=== PATIENT | male | born 1955 | race Caucasian/White ===

== ENCOUNTER 2018-02-27 23:48 | Observation (INO) ==
--- NOTE | 2018-02-28 00:19 | ED ---
HPI General Chief Complaint: Arrhythmia / Palpitations Stated Complaint: Lft arm tingling x 30 min Time Seen by Provider: 02/27/18 23:55 Source: patient Mode of arrival: ambulatory Limitations: no limitations History of Present Illness HPI narrative: Patient is a 62-year-old male who presents to the emergency room for evaluation of chest pain with left arm tingling. 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 Reports that his chest pain is left sided and feels like a "pressure" to his chest. Reports that he has been feeling as if his heart was racing as well. Patient reports that his left arm feels tingly although his chest pain does not radiate to his left arm. Patient reports that right now, his heart does not feel like it is racing, reports that he just feels pressure to his chest. Patient reports that overall, he is very healthy, he does not take any medications at baseline, he is a non-smoker, he quit smoking tobacco 2 years ago. Reports that he did take an aspirin 325 mg earlier today as he had some pain. He does not take aspirin daily. Patient reports that he does follow-up at primary care often. Patient reports that he has never felt this way before MD complaint: Reports chest pain STEMI Alert: No Onset (ago): minute(s) (30 minutes prior to arrival to the ER) Duration: improved Onset: during rest Pain location: Reports left chest Severity: moderate Severity scale (1-10): 5 Quality: Reports aching Pain radiation: Reports LUE Relieving factors: nothing Related Data Home Medications Medication Instructions Recorded Confirmed aspirin 325 mg PO DAILY 02/28/18 02/28/18 esomeprazole magnesium [Nexium] 20 mg PO DAILY 02/28/18 02/28/18 Allergies Allergy/AdvReac Type Severity Reaction Status Date / Time No Known Allergies Allergy Verified 02/28/18 00:15 Review of Systems ROS: all other systems reviewed are negative PMFSH History History Provided By: Patient Medical History Medical History Hx of rheumatic fever (Acute) Surgical History Surgical History No history of previous surgery (Acute) Social History Social History (Reviewed 02/28/18 @ 00:16 by Celeste Rutledge Substance History: No History of Abuse Second Hand Smoke Exposure: Yes Smoking Status: Former smoker How Often Do You Have a Drink Containing Alcohol: 4 or more times a week Recent Travel in [facility] within the Last 8 Weeks: No Recent Out of Country Travel within the Last 8 Weeks: No Exam Narrative Exam Narrative: GENERAL: Mild distress SKIN: Focused skin assessment warm/dry. HEAD: Atraumatic. Normocephalic. EYES: Pupils equal and round. No scleral icterus. No injection or drainage. ENT: No nasal bleeding or discharge. Mucous membranes pink and moist. NECK: Trachea midline. No JVD. CARDIOVASCULAR: tachycardic. No murmur appreciated. RESPIRATORY: No accessory muscle use. Clear to auscultation. Breath sounds equal bilaterally. GASTROINTESTINAL: Abdomen soft, non-tender, nondistended. Hepatic and splenic margins not palpable. MUSCULOSKELETAL: No obvious deformities. No clubbing. No cyanosis. No edema. NEUROLOGICAL: Awake and alert. No obvious cranial nerve deficits. Motor grossly within normal limits. Normal speech. PSYCHIATRIC: Anxious mood and affect; insight and judgment normal. Course Initial Documented Vital Signs Temperature 97.8 F 02/28/18 00:15 Pulse Rate 102 H 02/28/18 00:15 Respiratory Rate 18 02/28/18 00:15 Blood Pressure 114/66 02/28/18 00:15 Pulse Oximetry 98 02/28/18 00:15 Last Documented Vital Signs Temperature 97.8 F 02/28/18 00:15 Pulse Rate 82 02/28/18 01:50 Respiratory Rate 18 02/28/18 01:50 Blood Pressure 116/56 L 02/28/18 01:50 Pulse Oximetry 98 02/28/18 01:50 Medical Decision Making MDM Narrative Medical decision making narrative: During the course of the patients emergency department visit, the patients history, examination, and differential diagnosis were reviewed with the patient. The patient was placed on a commercial specialist with oximetry and frequent blood pressure monitoring. The patient had an IV access obtained and blood work sent for analysis. The patient was initially provided IVF. I was watching patient on the heart monitor, he did go into an episode of SVT which lasted for a few seconds and resolved on its own. We were unable to capture the rhythm as he was being hooked up to the all source analyst. Patient did take a full dose aspirin today. The patients laboratory studies were reviewed and remarkable for WBC 6.2, hemoglobin 16, hematocrit 50, platelets 211 Radiology studies were reviewed and remarkable for: xray of his chest shows no acute abnormality, emphysematous bullous changes to the upper lungs Patient currently chest pain free- no nitro was given to patient CT was reviewed, CTA shows no evidence of pulmonary emboli. Patient does have focal areas of increased density in the superior lateral aspects of the lungs bilaterally, these are nonspecific. This could be related to scarring versus consolidation. Underlying mass cannot be excluded. Follow up noncontrast CT in 3 months versus a PET scan would be recommended. I did review these CAT scan findings with patient, a copy of his CAT scan report was given to him as he will need to follow-up with these findings as outpatient. Plan to admit the patient to the hospital this time for cardiac monitoring. case reviewed with Dr. Sawyer who accepts pt to service Medical Screen Exam Complete: Yes Emergency Medical Condition: Yes Differential Diagnosis Differential Diagnosis: ACS, arrythmia, DVT, PE, electrolyte abnormality Medical Records Medical records reviewed: Yes I reviewed the patient's medical records. Lab Data Result diagrams: 02/28/18 00:00 02/28/18 00:00 Lab Results 02/28/18 02/28/18 02/28/18 Range/Units 00:00 00:00 00:00 CBC w Diff Auto diff final WBC 6.2 (4.0-11.0) th/mm3 RBC 5.47 (4.50-5.90) mil/mm3 Hgb 16.0 (13.0-17.0) gm/dL Hct 50.0 (39.0-51.0) % MCV 91.5 (80.0-100.0) fL MCH 29.3 (27.0-34.0) pg MCHC 32.0 (32.0-36.0) % RDW 12.5 (11.6-17.2) % Plt Count 211 (150-450) th/mm3 MPV 8.6 (7.0-11.0) fL Neut % (Auto) 60.1 (16.0-70.0) % Lymph % (Auto) 25.5 (9.0-44.0) % [place] % (Auto) 12.0 H (0.0-8.0) % Eos % (Auto) 1.7 (0.0-4.0) % Baso % (Auto) 0.7 (0.0-2.0) % Neut # (Auto) 3.8 (1.8-7.7) th/mm3 Lymph # (Auto) 1.6 (1.0-4.8) th/mm3 [place] # (Auto) 0.7 (0.0-0.9) th/mm3 Eos # (Auto) 0.1 (0.0-0.4) th/mm3 Baso # (Auto) 0.0 (0.0-0.2) th/mm3 WBC Differential . Differential Comment . PT 9.6 L (9.8-11.6) sec INR 0.9 Ratio APTT 29.2 (23.4-31.7) sec D-Dimer Quant (PE/DVT) 0.95 H (0.00-0.50) mg/L FEU Sodium (136-145) meq/L Potassium (3.5-5.1) meq/L Chloride (98-107) meq/L Carbon Dioxide (21.0-32.0) meq/L Anion Gap (5-15) meq/L BUN (7-18) mg/dL Creatinine (0.60-1.30) mg/dL Estimated GFR (>89) mL/min Random Glucose (74-106) mg/dL Calcium (8.5-10.1) mg/dL Total Bilirubin (0.2-1.0) mg/dL AST (15-37) U/L ALT (12-78) U/L Alkaline Phosphatase (45-117) U/L Total Creatine Kinase (39-308) U/L CK-MB (CK-2) (0.5-3.6) ng/mL Troponin I (0.02-0.05) ng/mL B-Natriuretic Peptide 15 (0-100) pg/mL Total Protein (6.4-8.2) g/dL Albumin (3.4-5.0) g/dL 02/28/18 02/28/18 Range/Units 00:00 02:03 CBC w Diff WBC (4.0-11.0) th/mm3 RBC (4.50-5.90) mil/mm3 Hgb (13.0-17.0) gm/dL Hct (39.0-51.0) % MCV (80.0-100.0) fL MCH (27.0-34.0) pg MCHC (32.0-36.0) % RDW (11.6-17.2) % Plt Count (150-450) th/mm3 MPV (7.0-11.0) fL Neut % (Auto) (16.0-70.0) % Lymph % (Auto) (9.0-44.0) % [place] % (Auto) (0.0-8.0) % Eos % (Auto) (0.0-4.0) % Baso % (Auto) (0.0-2.0) % Neut # (Auto) (1.8-7.7) th/mm3 Lymph # (Auto) (1.0-4.8) th/mm3 [place] # (Auto) (0.0-0.9) th/mm3 Eos # (Auto) (0.0-0.4) th/mm3 Baso # (Auto) (0.0-0.2) th/mm3 WBC Differential Differential Comment PT (9.8-11.6) sec INR Ratio APTT (23.4-31.7) sec D-Dimer Quant (PE/DVT) (0.00-0.50) mg/L FEU Sodium 139 (136-145) meq/L Potassium 3.6 (3.5-5.1) meq/L Chloride 107 (98-107) meq/L Carbon Dioxide 21.9 (21.0-32.0) meq/L Anion Gap 10 (5-15) meq/L BUN 8 (7-18) mg/dL Creatinine 1.30 (0.60-1.30) mg/dL Estimated GFR 56 L (>89) mL/min Random Glucose 163 H (74-106) mg/dL Calcium 8.2 L (8.5-10.1) mg/dL Total Bilirubin 0.5 (0.2-1.0) mg/dL AST 21 (15-37) U/L ALT 26 (12-78) U/L Alkaline Phosphatase 59 (45-117) U/L Total Creatine Kinase 103 87 (39-308) U/L CK-MB (CK-2) 1.7 (0.5-3.6) ng/mL Troponin I Less than 0.02 L Less than 0.02 L (0.02-0.05) ng/mL B-Natriuretic Peptide (0-100) pg/mL Total Protein 7.6 (6.4-8.2) g/dL Albumin 3.5 (3.4-5.0) g/dL Imaging Data Attestation: I personally reviewed and interpreted this imaging study as follows : Radiologist's impression: Chest CTA 02/28/18 00:00 CONCLUSION: 1. No pulmonary embolus. 2. Very prominent emphysematous bulla seen in the upper lungs bilaterally. 3. Focal areas of increased density at the superior lateral aspect of the lungs bilaterally. These are nonspecific. This could be related to scarring or areas of consolidation. Underlying masses cannot be excluded. Follow-up with a noncontrast CT examination in 3 months versus a PET scan would be recommended. Chest X-Ray 02/28/18 00:05 CONCLUSION: No acute abnormality seen. Emphysematous bullous change in the upper lungs. ECG Data EKG Prior to Arrival: No Attestation: I personally reviewed and interpreted this ECG as follows: Prior ECG tracings: not available for review Interpretation: EKG at 2353: NSR at 91bpm, qt/qtc: 322/371, no acute st or t wave changes Discharge Plan Discharge Disposition Patient Disposition: ED Admit(ED Internal Use Only) Discharge Condition Condition: Stable Discharge Details Diagnosis: Chest pain, Paroxysmal SVT (supraventricular tachycardia) Physicians Team ED Provider: Celeste Gibson Rxs /Orders / Referrals /Forms Prescriptions: No Action aspirin 325 mg Tablet 325 mg PO DAILY RF: 0 esomeprazole magnesium [Nexium] 20 mg Capsule,Delayed Release(Dr/Ec) 20 mg PO DAILY RF: 0 Status ED Status: Pending Admission
[2018-02-28] MEDS: Sod Chloride 0.9% Inj 1,000 ML IV.SIG SCH ×2 (00:20→00:42)
--- NOTE | 2018-02-28 00:21 | XR ---
EXAM DATE: 02/28/2018 12:17 AM EST AGE/SEX: 62 years / Male INDICATIONS: Chest pain and left arm numbness. CLINICAL DATA: This is the patient's initial encounter. Patient reports that signs and symptoms have been present for 1 day and indicates a pain score of 3/10. MEDICAL/SURGICAL HISTORY: None. None. COMPARISON: . FINDINGS: The heart size is normal. Lungs are clear. There is emphysematous bulla seen in the upper lungs. CONCLUSION: No acute abnormality seen. Emphysematous bullous change in the upper lungs. Electronically signed by: Seth Thomason MD Board Certified Radiologist 02/28/2018 12:19 AM EST
[2018-02-28 00:25] LABS: Baso % (Auto) 0.7 % (0.0-2.0); Eos # (Auto) 0.1 th/mm3 (0.0-0.4); Eos % (Auto) 1.7 % (0.0-4.0); Lymph # (Auto) 1.6 th/mm3 (1.0-4.8); Lymph % (Auto) 25.5 % (9.0-44.0); Mean Corpuscular Hemoglobin 29.3 pg (27.0-34.0); Mean Corpuscular Volume 91.5 fL (80.0-100.0); Mean Platelet Volume 8.6 fL (7.0-11.0); Mono # (Auto) 0.7 th/mm3 (0.0-0.9); Neut # (Auto) 3.8 th/mm3 (1.8-7.7); Neut % (Auto) 60.1 % (16.0-70.0); Platelet Count 211 th/mm3 (150-450); Red Blood Count 5.47 mil/mm3 (4.50-5.90); Red Cell Distribution Width 12.5 % (11.6-17.2); White Blood Count 6.2 th/mm3 (4.0-11.0)
[2018-02-28 00:42] LABS: Chloride 107 meq/L (98-107); Potassium 3.6 meq/L (3.5-5.1); Sodium 139 meq/L (136-145)
[2018-02-28 00:45] LABS: Albumin 3.5 g/dL (3.4-5.0); Anion Gap 10 meq/L (5-15); Blood Urea Nitrogen 8 mg/dL (7-18); Calcium 8.2 mg/dL (8.5-10.1); Carbon Dioxide 21.9 meq/L (21.0-32.0); Glucose,Random 163 mg/dL (74-106)
[2018-02-28 00:48] LABS: Activated Partial Thrombo Time 29.2 sec (23.4-31.7); Alanine Aminotransferase 26 U/L (12-78); Aspartate Aminotransferase 21 U/L (15-37); Glomerular Filtration Rate 56 mL/min (>89); INR 0.9 Ratio; Prothrombin Time 9.6 sec (9.8-11.6)
[2018-02-28 00:50] LABS: Total Protein 7.6 g/dL (6.4-8.2)
[2018-02-28 00:51] LABS: Alkaline Phosphatase 59 U/L (45-117); Creatine Kinase 103 U/L (39-308)
[2018-02-28 00:54] LABS: D-Dimer 0.95 mg/L FEU (0.00-0.50)
[2018-02-28 01:03] LABS: Creatine Kinase MB 1.7 ng/mL (0.5-3.6)
[2018-02-28 02:59] LABS: Creatine Kinase 87 U/L (39-308)
--- NOTE | 2018-02-28 03:10 | CT ---
EXAM DATE: 02/28/2018 2:42 AM EST AGE/SEX: 62 years / Male INDICATIONS: Increased heart rate. Chest pain. Shortness of breath. CLINICAL DATA: This is the patient's initial encounter. Patient reports that signs and symptoms have been present for 1 day and indicates a pain score of 3/10. MEDICAL/SURGICAL HISTORY: None. None. RADIATION DOSE: 11.64 CTDI (mGy) COMPARISON: No prior exams available for comparison. TECHNIQUE: Volumetric scanning was performed using a multi-row detector CT scanner during bolus infu allison of 75 ml Omnipaque 350 (iohexol) nonionic water-soluble contrast as a single exam dose. The ronald a was post processed with a variety of visualization algorithms including full volume maximum intensi ty projection and sliding thin slab reformation. Using automated exposure control and adjustment of t he mA and/or kV according to patient size, radiation dose was kept as low as reasonably achievable to obtain optimal diagnostic quality images. DICOM format image data is available electronically for r eview and comparison. FINDINGS: Pulmonary Arteries: No filling defects are seen in the pulmonary arteries out to the subsegmental ve ssels. The left and right pulmonary arteries are normal in diameter. Lung: There is prominent emphysematous bulla seen in the upper lungs. There is some associated soft tissue density seen at the lateral superior aspect of the lungs bilaterally. These measure over 2 cm. Effusion: None. Mediastinum: No evidence of mediastinal or hilar adenopathy. Other: The axilla is unremarkable. There are calcified granulomas seen at the spleen. CONCLUSION: 1. No pulmonary embolus. 2. Very prominent emphysematous bulla seen in the upper lungs bilaterally. 3. Focal areas of increased density at the superior lateral aspect of the lungs bilaterally. These a re nonspecific. This could be related to scarring or areas of consolidation. Underlying masses cannot be excluded. Follow-up with a noncontrast CT examination in 3 months versus a PET scan would be lance mmended. Electronically signed by: Seth Thomason MD Board Certified Radiologist 02/28/2018 3:08 AM EST
[2018-02-28] MEDS ORDERED: Morphine Inj 4 MG/ML Vial IV.PUSH PRN (03:33)
[2018-02-28] MEDS ORDERED: Acetaminophen 500 MG Tablet PO PRN (03:33)
[2018-02-28] MEDS ORDERED: Sod Chloride 0.9% Inj 1,000 ML IV.CONT SCH (03:45)
[2018-02-28] MEDS ORDERED: Heparin - SQ 10,000 UNITS/ML Vial SQ SCH (04:00)
[2018-02-28 06:53] LABS: Creatine Kinase 85 U/L (39-308)
--- NOTE | 2018-02-28 08:15 | P.HPIM ---
History of Present Illness Primary Care Physician: Golden Peralta Chief Complaint: Chest pain History of Present Illness: 62-year-old male with no chronic medical illnesses who presented to the hospital for evaluation of chest pain. Patient states that he was in normal state of health until last evening when he came to help his grandson load up a car in a trailer and shortly after that he started developing chest discomfort in the left side of his chest which he describes as a pressure sensation which was a 4/10 on a pain scale. He indicates that he did have some numbness to his left arm. Associated nausea but no vomiting, dizziness. Denies any diaphoresis, shortness of breath, dyspnea. Patient came to the emergency department for evaluation and during his initial presentation he was noted to have supraventricular tachycardia which resolved on its own. The patient indicates that the pain did resolve without any medications in approximately 30 minutes. He indicates that after he got IV hydration he did feel much better. Patient never had any cardiac workup in the past. He was recommended by the ER physician that the patient be observed in the hospital for further evaluation and management. Review of Systems Review of Systems: all other systems reviewed are negative Cardiovascular: Reports chest pain and Reports radiating jaw, neck or arm pain Neurologic: Reports dizziness PMFSH Medical History Medical History Hx of rheumatic fever (Acute) Surgical History Surgical History No history of previous surgery (Acute) Social History Social History Substance History: No History of Abuse Second Hand Smoke Exposure: Yes Smoking Status: Former smoker Number of Pack-Years (if former smoker): 45 Smoking End Date: Patient quit smoking 3 years ago How Often Do You Have a Drink Containing Alcohol: 4 or more times a week Recent Travel in [facility] within the Last 8 Weeks: No Recent Out of Country Travel within the Last 8 Weeks: No Immunization History Tetanus Immunization: <5 Years Medications and Allergies Allergies Allergy/AdvReac Type Severity Reaction Status Date / Time No Known Allergies Allergy Verified 02/28/18 00:15 Home Medications Medication Instructions Recorded Confirmed Type aspirin 325 mg PO DAILY 02/28/18 02/28/18 History esomeprazole magnesium [Nexium] 20 mg PO DAILY 02/28/18 02/28/18 History Active Medications: Active Medications Acetaminophen (Tylenol) 500 mg PO Q4H PRN PRN Reason: HEADACHE Heparin Sodium (Porcine) (Heparin Inj) 5,000 units SQ Q8H [facility] Last Admin: 02/28/18 04:16 Dose: 5,000 units Sodium Chloride (Ns Inj) 1,000 mls @ 100 mls/hr IV.CONT .Q10H [facility] Last Admin: 02/28/18 04:16 Dose: 100 mls/hr Morphine Sulfate (Morphine Inj) 2 mg IV.PUSH Q4H PRN PRN Reason: PAIN SCALE 8 TO 10 Ondansetron HCl (Zofran Inj) 4 mg IV.PUSH Q6H PRN PRN Reason: NAUSEA Sodium Chloride (Ns Flush) 2 ml IV.FLUSH BID KUNAL Sodium Chloride (Ns Flush) 2 ml IV.FLUSH PRN PRN PRN Reason: FLUSH AFTER USING IV ACCESS Physical Exam Vital signs: Last Vital Signs Temp 96.6 F L 02/28/18 04:52 Pulse 70 02/28/18 05:16 Resp 18 02/28/18 04:52 BP 117/58 L 02/28/18 04:52 Pulse Ox 99 02/28/18 05:00 Intake & Output 02/26/18 02/27/18 02/28/18 03/01/18 06:59 06:59 06:59 06:59 Intake Total 1999 Balance 1999 Weight 75.9 kg Narrative: GENERAL: Well-developed, well-nourished, in no acute distress. alert and orientated HEENT: Head is normocephalic without any lesions or masses noted. Facial features are symmetric. Eyes: Pupils equal round reactive to light. Extraocular muscles are intact. Conjunctivae were clear. Oropharyngeal: Pharynx without any erythema edema. Tongue is midline without deviation. Buccal mucosa is moist without any masses or lesions NECK: Supple without any masses. Trachea midline no deviation. No JVD, no bruits are appreciated CARDIAC: Regular rhythm, regular rate. S1/S2 are heard. No murmurs gallops or rubs. LUNGS: Clear to auscultation bilaterally. No wheeze, rhonchi or rales. No use of accessory muscles on inspiration or expiration. ABDOMEN: Soft, nontender. Nondistended. Bowel sounds heard in all 4 quadrants. No organomegaly or masses. Negative rebound, negative guarding EXTREMITIES: No edema, pulses are equal bilaterally. No cyanosis or clubbing NEUROLOGY: Mood and affect appear appropriate. Cranial nerves II through XII grossly intact. Muscle strength 5/5 in upper and lower extremities bilaterally. Deep tendon reflexes are 2+ in upper and lower extremities bilaterally. Results Labs CBC & Chem 7: 02/28/18 00:00 02/28/18 00:00 Imaging Impressions Chest CTA 02/28/18 00:00 CONCLUSION: 1. No pulmonary embolus. 2. Very prominent emphysematous bulla seen in the upper lungs bilaterally. 3. Focal areas of increased density at the superior lateral aspect of the lungs bilaterally. These are nonspecific. This could be related to scarring or areas of consolidation. Underlying masses cannot be excluded. Follow-up with a noncontrast CT examination in 3 months versus a PET scan would be recommended. Chest X-Ray 02/28/18 00:05 CONCLUSION: No acute abnormality seen. Emphysematous bullous change in the upper lungs. Caprini VTE Risk Assessment Caprini VTE Risk Assessment: No/Low Risk (score <= 1) Caprini Risk Assessment Model: Point Value = 1 Point Value = 2 Point Value = 3 Point Value = 5 Age 41-60 Minor surgery BMI > 25 kg/m2 Swollen legs Varicose veins or History of unexplained or recurrent spontaneous Oral contraceptives or hormone replacement Sepsis (< 1 month) Serious lung disease, including pneumonia (< 1 month) Abnormal pulmonary function Acute myocardial infarction Congestive heart failure (< 1 month) History of inflammatory bowel disease Medical patient at bed rest Age 61-74 Arthroscopic surgery Major open surgery (> 45 min) Laparoscopic surgery (> 45 min) Malignancy Confined to bed (> 72 hours) Immobilizing plaster cast Central venous access Age >= 75 History of VTE Family history of VTE Factor V Leiden Prothrombin [id number] Lupus anticoagulant Anticardiolipin antibodies Elevated serum homocysteine Heparin-induced thrombocytopenia Other congenital or acquired thrombophilia Stroke (< 1 month) Elective arthroplasty Hip, pelvis, or leg fracture Acute spinal cord injury (< 1 month) Prophylaxis Regimen: Total Risk Factor Score Risk Level Prophylaxis Regimen 0-1 Low Early ambulation 2 Moderate Order ONE of the following: *Sequential Compression Device (SCD) *Heparin 5000 units SQ BID 3-4 Higher Order ONE of the following medications: *Heparin 5000 units SQ TID *Enoxaparin/Lovenox 40 mg SQ daily (WT < 150 kg, CrCl > 30 mL/min) *Enoxaparin/Lovenox 30 mg SQ daily (WT < 150 kg, CrCl > 10-29 mL/min) *Enoxaparin/Lovenox 30 mg SQ BID (WT < 150 kg, CrCl > 30 mL/min) AND/OR *Sequential Compression Device (SCD) 5 or more Highest Order ONE of the following medications: *Heparin 5000 units SQ TID (Preferred with Epidurals) *Enoxaparin/Lovenox 40 mg SQ daily (WT < 150 kg, CrCl > 30 mL/min) *Enoxaparin/Lovenox 30 mg SQ daily (WT < 150 kg, CrCl > 10-29 mL/min) *Enoxaparin/Lovenox 30 mg SQ BID (WT < 150 kg, CrCl > 30 mL/min) AND *Sequential Compression Device (SCD) Assessment and Plan Plan Chest pain Patient with increased risk factor to include age, male, history of tobacco use , family history of hypertension Patient has been ruled out for acute coronary event with serial cardiac enzymes are negative EKGs were reviewed and shows sinus rhythm without any changes Myocardial perfusion study was performed and indicated no signs of ischemia, low risk Continue aspirin, nitroglycerin as needed Continue monitor telemetry Supraventricular tachycardia on presentation Telemetry was reviewed and did not indicate any reoccurrence DVT prevention Low risk, early ambulation Discharge Planning: Discharge home in stable condition Activity: Ad wiley. Diet: Healthy heart diet Medication per medication reconciliation Follow-up with primary medical doctor in 1 week
[2018-02-28 09:26] VITALS: PULSE 65; RESP 20
[2018-02-28] MEDS ORDERED: Regadenoson Inj 0.4 MG/5 ML Syringe IV.PUSH ONE (09:50)
--- NOTE | 2018-02-28 09:52 | ECG ---
Date Performed: 02/27/2018 Time Performed: 23:53:49 PTAGE: 62 years EKG: Sinus rhythm WITH MARKED SINUS ARRHYTHMIA POSSIBLE LEFT ATRIAL ENLARGEMENT POSSIBLE RIGHT VENTRICULAR CONDUCTION DELAY BORDERLINE ECG INTERPRETATION BASED ON A DEFAULT AGE OF 40 YEARS NO PREVIOUS TRACING DOCTOR: Colton Johnson Interpretating Date/Time 02/28/2018 09:49:44
--- NOTE | 2018-02-28 10:22 | ECG ---
Date Performed: 02/28/2018 Time Performed: 04:53:24 PTAGE: 62 years EKG: SINUS BRADYCARDIA POSSIBLE RIGHT VENTRICULAR CONDUCTION DELAY BORDERLINE ECG PREVIOUS TRACING : 02/27/2018 23.53 DOCTOR: Colton Johnson Interpretating Date/Time 02/28/2018 10:21:29
--- NOTE | 2018-02-28 11:03 | NM ---
EXAM DATE: 02/28/2018 10:59 AM EST AGE/SEX: 62 years / Male INDICATIONS:Angina. . Left sided chest pain and pressure. CLINICAL DATA: This is the patient's initial encounter. Patient reports that signs and symptoms have been present for 1 day and indicates a pain score of 4/10. MEDICAL/SURGICAL HISTORY: . Hx of rheumatic fever. None. COMPARISON: No prior exams available for comparison. DOSE: 8.6 mCi Tc 99m Myoview at rest 26.2 mCi [id number] at stress 0.4 mg Lexiscan STRESS SYMPTOMS: Chest tightness. EJECTION FRACTION: 60 % TECHNIQUE: The patient underwent pharmacologic stress with infusion of prescribed dose. Continuous ECG tracing was monitored during stress. Gated SPECT imaging was performed after stress and conventi onal SPECT imaging was performed at rest. The examination was performed on a SPECT/CT scanner, both attenuation and non-corrected datasets were reviewed. FINDINGS: Distribution: The maximum perfused segment at stress is in the anterolateral wall. Perfusion Study: The pattern of perfusion at stress is within normal limits. Gated Study: There are intact wall motion and wall thickening without hypokinetic or dyskinetic segm ents. The ejection fraction is calculated at 60%. RISK CATEGORY: Low (<1% Annual Mortality Rate) CONCLUSION: 1. No appreciable ischemia. Electronically signed by: Mohit Leavitt MD Board Certified Radiologist 02/28/2018 11:01 AM EST
[2018-02-28 12:43] VITALS: BP 130/75; TEMP 97; O2SAT 100
--- NOTE | 2018-03-02 07:58 | TR ---
Date Performed: 02/28/2018 Time Performed: 10:05:59 DOCTOR: Margarito Danielson DRUG LIST: CLINICAL HISTORY: REASON FOR TEST: Angina REASON FOR ENDING: OBSERVATION: CONCLUSION: COMMENTS: Lexiscan stress test was performed under standard four minute protocol. Radionuclide was injected one minute prior to ending the test. No electrocardiographic abormalities were present t o suggest ischemia. Nuclear imaging and interpretation are pending.
== END 2018-02-28 14:40 | disposition home or self-care (01) ==
LOC: PHEDA 23:48 → PHED 23:48 → PH3 02-28 04:41
PROVIDERS: ADMIT Internal Medicine; ATTEND Internal Medicine
CPT/HCPCS: 71010; 71045; 71275; 78452; 80053; 82550; 82552; 83520; 83880; 84484; 85025; 85379; 85610; 85730; 93005; 93017; 99285; A9502; G0378; J1644; J2785; J7030; Q9967; Q9969